=== PATIENT | female | born 1965 | race African-American/Black ===

== ENCOUNTER 2017-12-28 12:53 | Emergency (ER) | payer OTHER ==
[~2017-12-28] VITALS: Ht 160 cm; Wt 59.0 kg
[~2017-12-28 12:53] MED LIST: ASA5UEC; CARAFATE 1 GM TA1 G1 PO; CHANTIX0.5 MG; COZAAR 50 MG TA50 M2 PO; DIOVAN HCT 80-1 EACH PO; DIOVAN PO; HYDROCHLOROTHIA25 M2 PO; HYDROCODON-ACE1 EAC7 PO; IRON325 PO; MIRALAX17 GM PO; PRILOSEC OTC20 MG PO; PROTONIX40 M1 PO; SORINE 80 MG TA80 M1 PO; SOTALOL PO; STOOL SOFTENER100 MG PO; TYLENOL325 MG PO; ULTRAM 50MG TAB50 MG PO
[2017-12-28 13:58] LABS: ABSOLUTE NEUTROPHILS 2.9 thou/uL (1.4-8.2); BASOPHILS 1.2 % (0.0-2.0); EOSINOPHILS 2.9 % (0.0-3.0); HEMATOCRIT 41.7 % (37.0-47.0); HEMOGLOBIN 14.2 gm/dL (12.0-15.0); LYMPHOCYTES 33.7 % (24.0-44.0); MCH 30.2 pg (26.0-34.0); MCV 88.8 fL (80.0-100.0); MONOCYTES 8.8 % (1.0-8.0); PLATELET COUNT 285 thou/uL (150-400); POLYS 53.4 % (36.0-66.0); RDW 14.1 % (10.5-14.5); WBC 5.5 thou/uL (4.0-11.0)
[2017-12-28 14:15] LABS: CALCIUM 8.7 mg/dL (8.5-10.1); POTASSIUM 4.1 mmol/L (3.5-5.1)
[2017-12-28 14:19] LABS: ALBUMIN 3.3 g/dL (3.4-5.0); TOTAL BILIRUBIN 0.3 mg/dL (<0.1-1.0)
[2017-12-28] MEDS ORDERED: PREDNISONE 20 M20 MG PO (15:20)
[2017-12-28] MEDS ORDERED: PEPCID20 MG PO (15:20)
[2017-12-28] MEDS ORDERED: CARAFATE 1 GM TA1 G1 PO (15:20)
[2017-12-28 15:32] LABS: URINE BILIRUBIN NEGATIVE (Negative); URINE BLOOD NEGATIVE (Negative); URINE CLARITY CLEAR; URINE COLOR YELLOW; URINE GLUCOSE-RANDOM* NEGATIVE (Negative); URINE KETONES NEGATIVE (Negative); URINE LEUKOCYTES-REFLEX NEGATIVE (Negative); URINE NITRITE-REFLEX NEGATIVE (Negative); URINE PROTEIN (DIPSTICK) NEGATIVE (Negative); URINE UROBILINOGEN 0.2 E.U./dl (0.2-1.0)
== END 2017-12-28 16:13 | disposition home or self-care (01) ==
LOC: ER 12:53
PROVIDERS: Physician Assistant
DX: L29.9 Pruritus, unspecified (principal); T38.0X5A Adverse effect of glucocorticoids and synthetic analogues, initial encounter; K29.70 Gastritis, unspecified, without bleeding; F17.210 Nicotine dependence, cigarettes, uncomplicated; I10 Essential (primary) hypertension; K21.9 Gastro-esophageal reflux disease without esophagitis; Z88.8 Allergy status to other drugs, medicaments and biological substances; Y92.89 Other specified places as the place of occurrence of the external cause

== ENCOUNTER 2018-11-04 17:19 | Emergency (ER) | payer OTHER ==
[~2018-11-04] VITALS: Ht 160 cm; Wt 63.5 kg
[~2018-11-04 17:19] MED LIST changes: +PEPCID20 MG PO; +PREDNISONE 20 M20 MG PO
[2018-11-04 18:27] VITALS: BP 119/90
[2018-11-04] MEDS ORDERED: FLONASE 0.05%50 MCG NASAL (18:41)
[2018-11-04] MEDS ORDERED: VENTOLIN HFA 1818 GM INH (18:41)
[2018-11-04] MEDS ORDERED: TESSALON PERLE100 MG PO (18:41)
== END 2018-11-04 18:40 | disposition home or self-care (01) ==
LOC: ER 17:19
DX: J06.9 Acute upper respiratory infection, unspecified (principal); I10 Essential (primary) hypertension; F17.210 Nicotine dependence, cigarettes, uncomplicated; Z88.8 Allergy status to other drugs, medicaments and biological substances

== ENCOUNTER 2019-11-03 21:53 | Emergency (ER) | payer OTHER ==
[~2019-11-03] VITALS: Ht 160 cm; Wt 62.6 kg
[~2019-11-03 21:53] MED LIST changes: +FLONASE 0.05%50 MCG NASAL; +TESSALON PERLE100 MG PO; +VENTOLIN HFA 1818 GM INH
[2019-11-03] MEDS ORDERED: NORVASC 2.5 MG2.5 M1 PO (22:18)
[2019-11-03] MEDS ORDERED: SORINE 80 MG TA80 MG PO (22:19)
[2019-11-04] MEDS ORDERED: NAPROXEN375 MG PO (00:54)
[2019-11-04] MEDS ORDERED: TRAMADOL 50 MG50 MG PO (00:54)
[2019-11-04 01:07] VITALS: BP 151/99
== END 2019-11-04 01:00 | disposition home or self-care (01) ==
LOC: ER 21:53
DX: M79.672 Pain in left foot (principal); I10 Essential (primary) hypertension; F17.210 Nicotine dependence, cigarettes, uncomplicated; Z79.899 Other long term (current) drug therapy; Z88.8 Allergy status to other drugs, medicaments and biological substances

== ENCOUNTER 2021-04-22 16:00 | Emergency (ER) | payer OTHER ==
[~2021-04-22] VITALS: Ht 160 cm; Wt 62.1 kg
[~2021-04-22 16:00] MED LIST changes: +NAPROXEN375 MG PO; +NORVASC 2.5 MG2.5 M1 PO; +SORINE 80 MG TA80 MG PO; +TRAMADOL 50 MG50 MG PO
[2021-04-22 16:54] LABS: ABSOLUTE NEUTROPHILS 2.4 thou/uL (1.4-8.2); BASOPHILS 1.1 % (0.0-2.0); EOSINOPHILS 1.2 % (0.0-3.0); HEMATOCRIT 43.6 % (37.0-47.0); HEMOGLOBIN 14.5 gm/dL (12.0-15.0); LYMPHOCYTES 42.7 % (24.0-44.0); MCHC 33.3 g/dL (28.0-37.0); MCV 87.1 fL (80.0-100.0); MONOCYTES 13.6 % (1.0-8.0); PLATELET COUNT 319 thou/uL (150-400); POLYS 41.4 % (36.0-66.0); RBC 5.01 mil/uL (4.20-5.00); RDW 14.4 % (10.5-14.5); WBC 5.7 thou/uL (4.0-11.0)
[2021-04-22 17:02] LABS: CALCIUM 9.1 mg/dL (8.5-10.1); CREATININE 1.2 mg/dL (0.6-1.0); POTASSIUM 3.9 mmol/L (3.5-5.1)
[2021-04-22 18:21] LABS: URINE BILIRUBIN NEGATIVE (Negative); URINE BLOOD TRACE (Negative); URINE CLARITY CLEAR; URINE GLUCOSE-RANDOM* NEGATIVE (Negative); URINE KETONES NEGATIVE (Negative); URINE LEUKOCYTES-REFLEX NEGATIVE (Negative); URINE NITRITE-REFLEX NEGATIVE (Negative); URINE PROTEIN (DIPSTICK) NEGATIVE (Negative); URINE UROBILINOGEN 0.2 E.U./dl (0.2-1.0)
[2021-04-22 18:22] LABS: URINE COLOR STRAW
[2021-04-22 20:25] VITALS: BP 98/67
--- NOTE | 2021-04-23 07:07 | EKG ---
[place] [address] [facility] [place] [address] ELECTROCARDIOGRAM REPORT Name: ERYN CRAWFORD Room #: [facility]#: [id number] Admission: 04/22/21 Attend Phys: Discharge: 04/22/21 Date of : 69 Report #: [id number] [facility] ED Test Date: 2021-04-22 Test Time: 16:31:53 Pat Name: ERYN CRAWFORD Department: Room: Gender: F Screen Tender: GELY : 1965 Requested By: Mello Black Order Number: [id number] MD: Saul Ross Measurements Intervals [place] Rate: 142 P: [place]: QRS: -2 QRSD: 91 T: 77 QT: 301 QTc: 463 Interpretive Statements SVT LVH with secondary repolarization abnormality Compared to ECG 09/22/2015 07:12:13 Left ventricular hypertrophy now present Early repolarization now present Supraventricular tachycardia no longer present Electronically Signed On 04-23-2021 7:07:05 [employer] by Saul Ross [email or web address] <ELECTRONICALLY SIGNED> By: Saul Ross MD, [facility] 04/23/21 0707 30 30 Saul Ross MD, FACC /EPI
== END 2021-04-22 20:39 | disposition left against medical advice (07) ==
LOC: ER 16:00
PROVIDERS: Student in an Organized Health Care Education/Training Program
DX: U07.1 COVID-19 (principal); K92.1 Melena; R00.0 Tachycardia, unspecified; I10 Essential (primary) hypertension; F17.210 Nicotine dependence, cigarettes, uncomplicated; Z79.899 Other long term (current) drug therapy; Z88.8 Allergy status to other drugs, medicaments and biological substances